=== PATIENT | female | born 1975 ===

== ENCOUNTER 2024-08-25 15:24 | Inpatient (IN) | payer BC, SELFPAY ==
[2024-08-22 22:09] VITALS: BP 152/95
[2024-08-22 23:12] VITALS: BMI 33.2
[2024-08-22 23:37] LABS: % Basophils 0.4 % (0-2); % Immature Granulocytes 0.3 % (0-0.5); % Lymphocytes 14.1 % (20.5-51.1); % Monocytes 0.9 % (1.7-9.3); % Neutrophils 84.3 % (42.2-75.2); Absolute Lymphocytes 1.5 10^3/uL (1.2-3.4); Absolute Monocytes 0.1 10^3/uL (0.1-0.6); Hematocrit 43.8 % (37.0-47.0); Hemoglobin 13.7 g/dL (12.0-16.0); Mean Corp Hgb Conc. 31.3 g/dL (33.0-37.0); Mean Corpuscular Hgb 28.4 pg (27.0-31.0); Mean Corpuscular Volume 90.7 fL (81.0-99.0); Mean Platelet Volume 10.1 fL (7.4-10.4); Nucleated Red Blood Cells % 0 %; Platelet Count 371 10^3/uL (130-400); Red Blood Cell Count 4.83 10^6/uL (4.20-5.40); Red Cell Dist. Width 13.4 % (11.5-14.5); White Blood Cell Count 10.7 10^3/uL (4.8-10.8)
[2024-08-22 23:39] LABS: Erythrocyte Sed Rate 19 mm/hour (0-20)
[2024-08-22 23:42] LABS: HCG, Serum Qualitative Screen Negative
[2024-08-22 23:48] LABS: Blood Urea Nitrogen 17 mg/dl (7-17); Calcium 9.5 mg/dl (8.4-10.2); Carbon Dioxide 25 mmol/L (22-30); Chloride 102 mmol/L (98-107); Estimated Creatinine Clearance 108 ml/min; Glucose 145 mg/dl (70-99); Potassium 4.3 mmol/L (3.5-5.1); Sodium 139 mmol/L (135-145); eGFR > 60.00
--- NOTE | 2024-08-22 23:55 | ED.GENMED ---
History of Present Illness
General
Chief Complaint: Headache
Source: patient
Exam Limitations: none
Time Seen by Provider: 08/22/24 22:41
History of Present Illness
History of Present Illness:
49-year-old female with a long history of headaches. These will occur typically 1 to 2 months occur for years. Is followed by neurology. Headaches are typically right-sided right restorationism over the right side of the neck. This evening however she
felt a pop on the side became more concerned and presents for evaluation. She does not want pain management.
Past History
Past History
ED Past Medical History: Other (Chronic migraines)
ED Past Surgical History: Other (Breast reduction)
Review of Systems
Review of Systems
All Other Systems: Not applicable
Constitutional: Denies fever or chills
Neurological: Denies dizzy, headache, weakness or numbness
Phy Exam
Physical Exam
Physical Exam:
GENERAL: Alert and oriented in no apparent distress
EYE: Orbits normal.
NECK: Supple, no carotid bruit
ENT: Pharynx without erythema
CARDIAC: Regular rate and rhythm without any obvious murmurs.
LUNGS: Clear breath sounds,normal
ABDOMEN: Soft, without focal tenderness or distention
NEUROLOGICAL: Alert and oriented , grossly non-focal. Speech normal. Cranial nerves II through XII intact. Extraocular muscles intact.
SKIN: Warm and dry, no rash or lesion, no discoloration, skin intact.
MUSCULOSKELETAL: No edema,no deformity.Good color
PSYCH: Normal and appropriate interaction.
Course
Orders/Labs/Results
Orders:
Orders
08/22/24 22:52
CT Head & Neck Angio W/wo IV Urgent
Comment:
Reason For Exam: Severe right-sided headache/right neck pain
IV Insert/Care/Rem.- Treatment PRN
08/22/24 22:53
Test Result ONCE
08/22/24 23:10
Basic Metabolic Panel Urgent
Complete Blood Count/With Diff Urgent
Erythrocyte Sed Rate Urgent
HCG, Serum Qualitative Screen Urgent
08/23/24 01:38
ECG [Electrocardiogram (*1)] Urgent
Reason for Study: Chest Pain
EKG- Treatment ONCE
08/23/24 01:45
Acetaminophen 1000MG/100Ml [Ofirmev] 1,000 mg in 100 ml IV ONCE
Acetaminophen IV Indication:: ED Narcotic Naive Pt-ONCE
08/23/24 02:18
Admit/Transfer Patient As Directed
Co-Sign Provider:
Level of Care: Observation services
Assign to:: Telemetry
Physician / Group: Uri
Diagnosis: Intractable Migraine, Abnormal CTA
Reason for Telemetry: Arrhythmia
Date to Stop Telemetry: 08/26/24
Time to Stop Telemetry: 11:00
Diphenhydramine [Benadryl] 25 mg IV NOW STA
Ketorolac [Toradol] 15 mg IV NOW STA
08/23/24 02:19
Code Status As Directed
Resuscitation Status: Full Code
PRN Pain Medication Management As Directed
May give lesser potent ordered pain med per pt: Yes
preference::
Protocol:: Medication orders for pain may be administered in a
manner that supports deferring to patient preference
when the pt is:
- Requesting an ordered lesser potent pain medication.
Least to most potent pain medications are defined
as: acetaminophen < NSAID < tramadol < opioids
(morphine, oxycodone, hydromorphone).
- Requesting a lesser dose of the same medication IF
ORDERED.
- Requesting a less intrusive route of administration
if both routes are prescribed by the provider (PO <
IV).
08/23/24 03:00
Flush (0.9% Sodium Chloride) [Flush (Nss)] See Dose Instructions IV PER PROTOCOL
08/23/24 03:36
Acetaminophen [Tylenol] 650 mg PO Q4HPRN PRN
HydrALAZINE [Apresoline] 10 mg IV Q6HPRN PRN
Ketorolac [Toradol] 15 mg IV Q6HPRN PRN
Metoclopramide [Reglan] 10 mg IV Q6HPRN PRN
08/23/24 03:36
Consult Notification Routine
Specialty to Notify: Neurology
Date consulting provider notified: 08/23/24
Time consulting provider notified: 06:57
Notified:: Provider
Comment: tt
NEUROLOGY CONSULT Routine
Consulting Provider: Judith Lomas
Was physician already notified: No
Reason for consult: Intractable Migraine, Abnormal CTA
Activity As Directed
Activity Level: Ambulate
I/O [Intake/ Output] As Directed
Frequency: Per unit guidelines
Neurological Checks As Directed
Frequency: q4h
Pneumatic Compression Sleeves As Directed
Type: Knee high
Vital Signs As Directed
Frequency: Per unit guidelines
Oxygen Therapy [O2 Therapy] [RESP] Routine
Titrate/Wean O2 to maintain O2 sat greater than (%): 94
DX Deep Vein Thrombosis Video Routine
08/23/24 Breakfast
Regular
At Your Request: Full Participation
Does patient need a safe tray?: No
MR Brain W/o & With Contrast IN AM
Comment:
Reason For Exam: Headache, Abnormal CTA
Recent pill cam endoscopy?: No
08/23/24 07:35
Basic Metabolic Panel IN AM
Complete Blood Count/No Diff IN AM
08/26/24 11:00
DC Protocol for Telemetry ONCE
Abnormal Lab Results
08/22/24
23:10
MCHC 31.3 L g/dL
(33.0-37.0)
Absolute Neuts (auto) 9.0 H 10^3/uL
(1.4-6.5)
Neutrophils % 84.3 H %
(42.2-75.2)
Lymphocytes % 14.1 L %
(20.5-51.1)
Monocytes % 0.9 L %
(1.7-9.3)
Glucose 145 H mg/dl
(70-99)
08/22/24 23:10
08/22/24 23:10
Vital Signs
Initial and Last Documented VS:
Initial Vital Signs
Temp Pulse Resp BP Pulse Ox
98.7 F 71 16 152/95 96
08/22/24 22:09 08/22/24 22:09 08/22/24 22:09 08/22/24 22:09 08/22/24 22:09
Last Documented Vital Signs
Temp Pulse Resp BP Pulse Ox
98.2 F 67 17 131/72 95
08/24/24 11:15 08/24/24 11:15 08/24/24 11:15 08/24/24 11:15 08/24/24 11:15
MDM/Problems Addressed
Differential Diagnosis Includes:
Clinically this is likely all part of her chronic migraine and chronic headache issue. However with the sudden pop and pain radiating down the neck. Dissection and intracerebral bleed need to be ruled out. Clinically stable and nontoxic.
*Pulse Oximetry
Patient hypoxic: no
*EKG
Interpreted by ED Provider?: Yes
Interpretation: normal
Comparison EKG: no changes
Heart Rate: 72
Rate: normal
Rhythm: sinus
[place]: normal axis
Interval: normal interval
QRS Pattern: normal QRS
Ischemia: no ischemia
*Critical Care Note
Total Time (30-74mins, 75-104mins- exclusive of procedures): Not Applicable
ED Attending Note
-
Portions of this chart may have been created with voice recognition software.� Occasional wrong word or��sound alike� substitutions may have occurred due to the inherent limitations of voice recognition software.
Discharge Plan
Departure
Patient Disposition: Admit
Date of Disposition: 08/23/24
Time of Disposition: 01:12
Presentation/result/management discussed w/ accepting MD/DO: Hospitalist
Discharge Problem:
Right sided headache/neck pain, Possible abnormality by CT angiography
Interventions
Interventions:
*Risk Screen - Suicide Last Done: 08/23/24 03:49
*General Assessment Last Done: 08/22/24 22:09
*Neglect/Abuse Screening Last Done: 08/22/24 22:09
*ED COVID-19 Vaccine History Last Done: 08/23/24 03:49
*Nursing Disposition Last Done: 08/23/24 03:41
ED- Neurological Assessment Last Done: 08/22/24 23:12
Discharge Date and Time
Discharge Date/Time: 08/23/24 03:41
[2024-08-23] VITALS (8 sets, daily range): BP systolic 98–133; BP diastolic 59–88; BMI 32.0
[2024-08-23] MEDS: OFIRMEV 100 IV (01:50)
--- NOTE | 2024-08-23 02:21 | HPS.HSE ---
Family Physician
-
Family Physician: Jeff Jones
Chief Complaint
-
Headache / Neck Pain
History of Present Illness
Patient is a 49y F with PMH significant for migraine headaches who presents to ED complaining of R sided headache and neck pain. Patient notes that she has had migraine headaches for about 20 years or so. Her current headache started in May
and has been fairly consistent since that time - with perhaps 1-2 days symptom free in that time. She notes pain in the R bahai, R eye and radiating into the R neck and chest. She complains of blurry vision involving both eyes. No double vision.
No speech difficulty, numbness, tingling or weakness.
Patient has been taking Tylenol at home and uses ice packs around the clock in an attempt to improve her symptoms.
She notes that pain is usually somewhat better after sleeping - but returns fairly quickly.
She states that she has been followed by Neurology and notes that she was started on oral steroids last week and the dose was increased a few days ago - with no significant improvement in her symptoms.
Medical History
Past Medical History
Past Medical History: Reports Other
Additional Past Medical History:
Migraine Headaches
Past Surgical History: Reports Other
Additional Past Surgical History:
Breast Reduction
T&A
Uterine Ablation
Social History
Tobacco: Non-smoker
Alcohol: Occasional
Drug: None
Family History
Family History: Other (Multiple family members with cerebral aneurysms.)
Allergies / Home Medications
Allergies reflects when Allergies were last updated in [facility].
Home Medications with original date entered in [facility]
Allergy/Medication List:
Allergies
Allergy/AdvReac Type Severity Reaction Status Date / Time
Tetanus Vaccines and Toxoid Allergy Unknown Verified 08/22/24 22:15
Home Medications
No Meds [No Current Medications] 08/23/24
Review of Systems
-
History Source: Patient
A 12 point ROS was completed and negative except as noted: Yes
Constitutional: Reports Fatigue; Denies Fever or Chills
EENT: Reports Other (Blurry vision); Denies Sore Throat
Respiratory: Denies Cough or Trouble Breathing
Cardiac: Denies Chest Pain or Palpitations
Abdomen/GI: Denies Abdominal Pain, Nausea, Vomiting or Diarrhea
: Denies Dysuria or Frequency
Musculoskeletal: Denies Joint Pain or Edema
Neurological: Reports Headache; Denies Dizzy, Weakness or Numbness
Psych: Denies Depression or Anxiety
Physical Exam
Vital Signs
Vital Signs
Temp Pulse Resp BP Pulse Ox
98.7 F 86 16 132/81 99
08/22/24 22:09 08/23/24 01:50 08/23/24 01:50 08/23/24 01:50 08/23/24 01:50
Physical Exam
General: Other (49y F in mild distress due to headache / pain.)
HEENT: Moist mucous membranes and PERRLA
Respiratory: Clear; No Wheezes, Rales or Rhonchi
Cardiac: S1/S2 and Regular Rhythm; No Murmur
GI: Soft, Non Tender, Non Distended and Normal Bowel Sounds
Musculoskeletal: No Clubbing, No Cyanosis and No Edema
Neuro: AO x 3 and Nonfocal/grossly intact
Laboratory Results
-
08/22/24 23:10
08/22/24 23:10
Impression/Plan
-
A/P: Patient is a 49y F with PMH significant for migraines who presents to ED complaining of right-sided headache x 2 months.
Intractable Migraine
Abnormal CTA Brain
- Observe overnight for further evaluation and treatment.
- Continue supportive care in attempt to improve migraine symptoms.
- Reglan / Toradol PRN.
- Neurology evaluation for additional recommendations.
- CTA Brain done this evening shows 1.5 x 1.3 cm abnormality in the R temporal region c/w venous frey / possible aneurysm (though less likely).
- Check MRI / MRA in the AM for further evaluation of CTA abnormality.
DVT Prophylaxis: SCDs
Code Status: Full
[2024-08-23] MEDS: FLUSH (NSS) 1 FLUSH IV (02:27)
[2024-08-23] MEDS: BENADRYL 25 MG IV ×2 (02:27→21:57)
[2024-08-23] MEDS: TORADOL 15 MG IV ×3 (02:27→21:19)
--- NOTE | 2024-08-23 04:53 | PTCARENOTE ---
Pt admitted to floor at approximately 0340 on tele. VSS. Pt AAOx3 and c/o Right sided head, neck, and chest pain. PRN Toradol administered. Pt NSR on the monitor. Pt oriented to room and call mckinney.
[2024-08-23] MEDS: TYLENOL 650 MG PO (05:52)
[2024-08-23] MEDS: REGLAN 10 MG IV (05:53)
[2024-08-23 08:28] LABS: Hematocrit 40.3 % (37.0-47.0); Hemoglobin 12.7 g/dL (12.0-16.0); Mean Corp Hgb Conc. 31.5 g/dL (33.0-37.0); Mean Corpuscular Hgb 28.6 pg (27.0-31.0); Mean Corpuscular Volume 90.8 fL (81.0-99.0); Mean Platelet Volume 10.5 fL (7.4-10.4); Platelet Count 344 10^3/uL (130-400); Red Blood Cell Count 4.44 10^6/uL (4.20-5.40); Red Cell Dist. Width 13.4 % (11.5-14.5); White Blood Cell Count 12.1 10^3/uL (4.8-10.8)
--- NOTE | 2024-08-23 08:28 | CON.NEURO ---
Addendum entered and electronically signed by Judith Lomas MD 08/23/24 13:11:
CTA neck-no dissection.
Original Note:
Consultation
Order
Date of Consultation: 08/23/24
Requesting Provider: Felice Grewal DO
Reason for Consult: Headache, abnormal CTA
CC: headache
HPI: This is a 49-year-old woman who presented to [facility] on 08-30-2024 with headache.
endorses moderate to severe nonpositional throbbing and mid cephalic headache radiating to her neck and chest over the last several days. She states that she heard a 'pop 'prompting her to seek medical attention. No reports of head trauma,
fever, change in vision, sensory or motor deficits, autonomic symptoms, excessive caffeine use, recently discontinue medications.
Ms. Thomas has a long history of similar headaches that has been more prolonged over the last several years. Common triggers include stress.
Prior ineffective rescue therapies included OTC NSAIDs, O2, Imitrex, Zyprexa, Nurtec, steroids, opioids. The patient recalls being on verapamil. She reportedly has had multiple hospitalizations for status migrainous to various hospitals in the
past.
The patient reportedly had NCS/EMG yesterday.
ER VS: 152/95, 71, afebrile.
EKG: NSR, QTc Int : 416 ms
CTA head-1.5 x 1.3 cm focus of enhancement in the medial right temporal lobe(venous frey/varix vs vs mass vs aneurysm vs hemorrhage).
PDMP: none
Labs: WBCs�10.7�12.1, normal sodium, calcium, creatinine, WBCs, glucose�145.
PMH: migraine wo aura, BMI 32, h/o toxic shock syndrome
PSH: Reduction mammoplasty, tonsillectomy
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
FH: Multiple family members had cerebral aneurysm
All:Tetanus toxoid
ROS:Constitutional: Negative. Negative for chills, fever and unexpected weight change.
HENT: Negative for ear pain, hearing loss, tinnitus and trouble swallowing.
Eyes: Negative. Negative for photophobia, pain and visual disturbance.
Respiratory: Negative for cough, choking and shortness of breath.
Cardiovascular: Negative for chest pain, palpitations and leg swelling.
Gastrointestinal: Negative for abdominal pain and vomiting.
Endocrine: Negative. Negative for cold intolerance.
Genitourinary: Negative for dysuria, flank pain and urgency.
Musculoskeletal: Negative for back pain, gait problem, neck pain and neck stiffness.
Skin: Negative for rash.
Allergic/Immunologic: Negative. Negative for immunocompromised state.
Neurological: positive for headache
Psychiatric/Behavioral: Negative for behavioral problems, confusion and hallucinations.
General: Well developed. In no acute distress.
Cardio: Regular rate and rhythm without murmur. Extremities are without cyanosis or edema.
Neuro:
Mental Status: Alert, oriented to person, place, and date. Normal attention and recall. Good fund of knowledge. Follows complex requests across the midline. Comprehension, naming, and repetition intact. Immediate and delayed recall 3/3.
Cranial Nerves: . Pupils are equally round and reactive to light. EOMs full. Visual castellanos full to confrontation. No ptosis. No nystagmus. V1-V3 intact to light touch and pinprick bilaterally, symmetric. Face symmetric. Normal hearing AU.
The palate elevated well. SCMs and traps 5/5. Tongue midline. No dysarthria.
Motor: Normal bulk and tone. No pronator or arm drift. Strength 5/5 throughout. No clonus.
Reflexes: 2+ throughout the upper extremities and knees. Plantar responses flexor bilaterally. Negative Brittni's bilaterally
Sensory: Normal vibration and JPS.
Coordination: No dysmetria or tremor.
Gait: deferred
Assessment and Plan:
I. Status migrainous
II. Neck pain
III. 1.5 x 1.3 cm focus of enhancement in the medial right temporal lobe(venous frey/varix vs vs mass vs aneurysm vs hemorrhage).
-BP goal-normotension
-CTA neck to rule out ICA dissection
-Brain MRI w/wo karel
-IV Reglan 10 mg, Benadryl 25 mg Q8h PRN for moderate to severe headache.
-Please check magnesium, ESR, CRP, D-dimer, ua tox
-Please obtain medical records from [facility]
I personally reviewed all radiology and labs along with past medical records pertinent to current medical problems. Total time spent in patient care is 60 minutes.
Thank you for allowing us to participate in the care of this patient. We will continue to follow. Please do not hesitate to contact us with any questions or concerns.
Subjective/Objective
Subjective Data
Date of Service: August 23, 2024
Objective Data
Vital Signs
Temp Pulse Resp BP Pulse Ox
36.6 C 70 20 98/59 98
08/23/24 07:31 08/23/24 07:31 08/23/24 07:31 08/23/24 07:31 08/23/24 07:31
Sodium 139 mmol/L (135-145) 08/22/24 23:10
Potassium 4.3 mmol/L (3.5-5.1) 08/22/24 23:10
BUN 17 mg/dl (7-17) 08/22/24 23:10
Glucose 145 mg/dl (70-99) H 08/22/24 23:10
Calcium 9.5 mg/dl (8.4-10.2) 08/22/24 23:10
Patient Allergies
Tetanus Vaccines and Toxoid Allergy (Verified 08/22/24 22:15)
Unknown
Medications
-
Active Medications
Generic Name Dose Route Start Last Admin
Trade Name Freq PRN Reason Stop Dose Admin
Acetaminophen 650 mg 08/23/24 03:36 08/23/24 05:52
Acetaminophen 325 Mg Tablet PO 09/20/24 03:35 650 mg
Q4HPRN PRN Administration
Mild Pain / Temp > 101
Hydralazine HCl 10 mg 08/23/24 03:36
Hydralazine 20 Mg/Ml Vial IV 09/20/24 03:35
Q6HPRN PRN
SBP > 180
Ketorolac Tromethamine 15 mg 08/23/24 03:36 08/23/24 04:12
Ketorolac 15 Mg/Ml Injection IV 08/28/24 03:35 15 mg
Q6HPRN PRN Administration
Moderate Pain
Metoclopramide HCl 10 mg 08/23/24 03:36 08/23/24 05:53
Metoclopramide 10 Mg/2 Ml Vial IV 09/20/24 03:35 10 mg
Q6HPRN PRN Administration
Headache / Nausea
Sodium Chloride 0 flush 08/23/24 03:00 08/23/24 02:27
Sodium Chloride 0.9% (Flush) Syringe IV 09/20/24 02:59 1 flush
PER PROTOCOL ED Administration
Home Medications
�Medication �Instructions �Recorded
No Meds [No Current Medications] 08/23/24
[2024-08-23 09:52] LABS: Blood Urea Nitrogen 15 mg/dl (7-17); Calcium 9.3 mg/dl (8.4-10.2); Carbon Dioxide 25 mmol/L (22-30); Chloride 104 mmol/L (98-107); Estimated Creatinine Clearance > 125 ml/min; Glucose 95 mg/dl (70-99); Magnesium 1.9 mg/dl (1.6-2.3); Potassium 4.4 mmol/L (3.5-5.1); Sodium 141 mmol/L (135-145); eGFR > 60.00
[2024-08-23] MEDS: TYLENOL PO ×2 (10:28→18:42)
--- NOTE | 2024-08-23 13:53 | W.PN.UPDATE ---
Update Note
Progress Note Update
Nonbillable note
CTA images reviewed
Patient stated of having tried morphine/NSAID/Tylenol at home without much help. After discussion patient agreeable to be maintained on Tylenol/Toradol as needed Dilaudid for breakthrough pain
MRI brain and MRA head report is pending at this point
[2024-08-23] MEDS: MAGNESIUM SULFATE 102 GRAMS IV (14:49)
[2024-08-23 15:04] LABS: D-Dimer 0.32 ug/mlFEU (0.00-0.50)
[2024-08-23 15:13] LABS: Amphetamines Negative (Negative); Barbiturates Negative (Negative); Benzodiazepines Negative (Negative); Buprenorphine Negative (Negative); Cocaine Negative (Negative)
[2024-08-23 15:14] LABS: Marijuana Negative (Negative); Methadone Negative (Negative); Methamphetamines Negative (Negative); Opiates Negative (Negative); Phencyclidine Negative (Negative); Tricyclic Antidepressants Negative (Negative)
[2024-08-23 15:19] LABS: Troponin I < 0.012 ng/ml
[2024-08-23 15:40] LABS: Fentanyl, Urine Negative (Negative)
[2024-08-23] MEDS: DEPACON 55 MG IV (16:16)
--- NOTE | 2024-08-23 16:34 | CM ---
supplier quality engineering manager reviewed patient's chart and met with patient and patient's sister lives with her along with her niece, 2 kids and grandsons in a one story home, patient is independent with adl's and ambulation, no dme, patient drives, home no needs.
PCP: Dr. Jones
Pharmacy: [facility]
Plan; Home with family when stable.
[2024-08-23] MEDS: DILAUDID 0.5 MG IV (22:33)
[2024-08-24] MEDS: TORADOL 30 MG IV ×2 (00:04→10:55)
[2024-08-24] MEDS: MELATONIN 3 MG PO (00:04)
[2024-08-24] MEDS: TYLENOL 1000 MG PO ×3 (00:06→18:08)
[2024-08-24] MEDS: REGLAN 10 MG IV (00:12)
[2024-08-24] MEDS: DILAUDID 0.5 MG IV ×2 (03:26→12:43)
[2024-08-24 03:32] VITALS: BP 110/67
[2024-08-24 07:02] VITALS: BP 96/69
[2024-08-24 08:16] LABS: D-Dimer 0.29 ug/mlFEU (0.00-0.50)
[2024-08-24] MEDS: DECADRON 6 MG IV (09:06)
[2024-08-24] MEDS: TORADOL 15 MG IV (09:07)
[2024-08-24 10:45] LABS: CRP, Highly Sensitive 1.81 mg/L
[2024-08-24 11:15] VITALS: BP 131/72
--- NOTE | 2024-08-24 12:20 | W.PN.NEURO.1 ---
Today's Communication / Plan
-
.
Subjective/Objective
Subjective Data
Date of Service: August 24, 2024
Neurology follow-up note.
Ms. Thomas endorses moderate to severe right sided headache. No reports of photophobia, phonophobia, nausea or change in vision. She states that valproic acid was not beneficial. She recalls zavzpret was helpful in the recent past.
Brain MRI w/wo karel(08/23/2024)- 1.3 x 1.4 x 1.1 cm homogeneously enhancing, dural-based lesion along the right anterior temporal fossa with associated mild mass effect on the adjacent temporal lobe.
CRP 1.8, ESR-19.
ua tox: oxy
PMH: migraine wo aura, BMI 32, h/o toxic shock syndrome
PSH: Reduction mammoplasty, tonsillectomy
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
FH: Multiple family members had cerebral aneurysm
All:Tetanus toxoid
ROS:Constitutional: Negative. Negative for chills, fever and unexpected weight change.
HENT: Negative for ear pain, hearing loss, tinnitus and trouble swallowing.
Eyes: Negative. Negative for photophobia, pain and visual disturbance.
Respiratory: Negative for cough, choking and shortness of breath.
Cardiovascular: Negative for chest pain, palpitations and leg swelling.
Gastrointestinal: Negative for abdominal pain and vomiting.
Endocrine: Negative. Negative for cold intolerance.
Genitourinary: Negative for dysuria, flank pain and urgency.
Musculoskeletal: Negative for back pain, gait problem, neck pain and neck stiffness.
Skin: Negative for rash.
Allergic/Immunologic: Negative. Negative for immunocompromised state.
Neurological: positive for headache
Psychiatric/Behavioral: Negative for behavioral problems, confusion and hallucinations.
General: Well developed. In no acute distress.
Cardio: Regular rate and rhythm without murmur. Extremities are without cyanosis or edema.
Neuro:
Mental Status: Alert, oriented to person, place, and date. Normal attention and recall. Good fund of knowledge. Follows complex requests across the midline. Comprehension, naming, and repetition intact. Immediate and delayed recall 3/3.
Cranial Nerves: . Pupils are equally round and reactive to light. EOMs full. Visual castellanos full to confrontation. No ptosis. No nystagmus. V1-V3 intact to light touch and pinprick bilaterally, symmetric. Face symmetric. Normal hearing AU.
The palate elevated well. SCMs and traps 5/5. Tongue midline. No dysarthria.
Motor: Normal bulk and tone. No pronator or arm drift. Strength 5/5 throughout. No clonus.
Reflexes: 2+ throughout the upper extremities and knees. Plantar responses flexor bilaterally. Negative Brittni's bilaterally
Sensory: Normal vibration and JPS.
Coordination: No dysmetria or tremor.
Gait: deferred
Assessment and Plan:
I. Status migrainous
II. Neck pain
III. R anterior temporal fossa 1.3 x 1.4 x 1.1 cm dural-based lesion with mild mass effect
IV. Abnormal urine levels of substances chiefly nonmedicinal as to source.
-BP goal-normotension
-IV Reglan 10 mg, Benadryl 25 mg Q8h PRN for moderate to severe headache.
-Continue dexamethasone 4 mg every 6 hour IV with PPI prophylaxis
-Avoid opioids.
-Monitor QTc interval
-Please obtain medical records from [facility]
I personally reviewed all radiology and labs along with past medical records pertinent to current medical problems. Total time spent in patient care is 46 minutes.
Thank you for allowing us to participate in the care of this patient. We will continue to follow. Please do not hesitate to contact us with any questions or concerns.
Objective Data
Vital Signs
Temp Pulse Resp BP Pulse Ox
36.8 C 67 17 131/72 95
08/24/24 11:15 08/24/24 11:15 08/24/24 11:15 08/24/24 11:15 08/24/24 11:15
Lab Results
08/23/24 07:35
08/23/24 07:35
Sodium 141 mmol/L (135-145) 08/23/24 07:35
Potassium 4.4 mmol/L (3.5-5.1) 08/23/24 07:35
BUN 15 mg/dl (7-17) 08/23/24 07:35
Glucose 95 mg/dl (70-99) 08/23/24 07:35
Calcium 9.3 mg/dl (8.4-10.2) 08/23/24 07:35
Ur Buprenorphine Negative (Negative) 08/23/24 13:28
Patient Allergies
Tetanus Vaccines and Toxoid Allergy (Verified 08/22/24 22:15)
Unknown
Vital Signs and Labs
-
Vital Signs and Labs:
Vital Signs
Temp Pulse Resp BP Pulse Ox
36.8 C 67 17 131/72 95
08/24/24 11:15 08/24/24 11:15 08/24/24 11:15 08/24/24 11:15 08/24/24 11:15
Lab Results
08/23/24 07:35
08/23/24 07:35
Sodium 141 mmol/L (135-145) 08/23/24 07:35
Potassium 4.4 mmol/L (3.5-5.1) 08/23/24 07:35
BUN 15 mg/dl (7-17) 08/23/24 07:35
Glucose 95 mg/dl (70-99) 08/23/24 07:35
Calcium 9.3 mg/dl (8.4-10.2) 08/23/24 07:35
Ur Buprenorphine Negative (Negative) 08/23/24 13:28
Medications
-
Medications:
Generic Name Dose Route Start Last Admin
Trade Name Freq PRN Reason Stop Dose Admin
Acetaminophen 1,000 mg 08/23/24 11:00 08/24/24 10:23
Acetaminophen 500 Mg Tablet PO 09/20/24 10:59 1,000 mg
Q8H ED Administration
Dexamethasone Sodium Phosphate 4 mg 08/24/24 14:00
Dexamethasone 4 Mg/Ml 1 Ml Vial IV 09/21/24 13:59
Q6H ED
Diphenhydramine HCl 25 mg 08/23/24 12:08 08/23/24 21:57
Diphenhydramine 50 Mg/Ml 1 Ml Vial IV 09/20/24 12:07 25 mg
HSPRN PRN Administration
hedache
Hydralazine HCl 10 mg 08/23/24 03:36
Hydralazine 20 Mg/Ml Vial IV 09/20/24 03:35
Q6HPRN PRN
SBP > 180
Hydromorphone HCl 0.5 mg 08/23/24 10:06 08/24/24 03:26
Hydromorphone 0.5 Mg/0.5 Ml Syringe IV 09/06/24 10:05 0.5 mg
Q3HPRN PRN Administration
breakthrough pain
Ketorolac Tromethamine 15 mg 08/23/24 03:36 08/24/24 09:07
Ketorolac 15 Mg/Ml Injection IV 08/28/24 03:35 15 mg
Q6HPRN PRN Administration
Moderate Pain
Ketorolac Tromethamine 30 mg 08/23/24 10:06 08/24/24 10:55
Ketorolac 30 Mg/Ml Injection IV 08/28/24 10:05 30 mg
Q6HPRN PRN Administration
sev pain
Metoclopramide HCl 10 mg 08/23/24 12:08 08/24/24 00:12
Metoclopramide 10 Mg/2 Ml Vial IV 09/20/24 12:07 10 mg
Q8HPRN PRN Administration
headache
Sodium Chloride 0 flush 08/23/24 03:00 08/23/24 02:27
Sodium Chloride 0.9% (Flush) Syringe IV 09/20/24 02:59 1 flush
PER PROTOCOL ED Administration
Home Medications
-
Home Medications
No Meds [No Current Medications] 08/23/24
[2024-08-24 12:22] LABS: Lyme Antibody Screen, EIA Negative (Negative)
[2024-08-24] MEDS: PROTONIX 40 MG PO (12:47)
--- NOTE | 2024-08-24 13:56 | CON.NS ---
Chief Complaint
-
Headache
History of Present Illness
This is a 49-year-old female admitted with severe headache. She has a long history of headaches. She has been treated by multiple physicians over multiple hospital admissions at different institutions. She states that she does see a headache
specialist in [place]. She came in with severe headache following a feeling of a pop in her head. An MRI of the brain was completed which showed a right temporal meningioma. Neurosurgery was consulted subsequently. Denies any weakness in her
upper or lower extremities. States that her headache pattern is in its normal places.
Review of Systems
-
10 point review of systems was completed and negative except stated in HPI
Medication and Allergies
Home Medications
Home Medications
�Medication �Instructions �Recorded
No Meds [No Current Medications] 08/23/24
Allergies
Allergies
Allergy/AdvReac Type Severity Reaction Status Date / Time
Tetanus Vaccines and Toxoid Allergy Unknown Verified 08/22/24 22:15
Physical Exam
-
Exam:
Awake alert and oriented x 3
Cranials 2 through 12 grossly intact
Motor strength reveals 5 out of 5 upper lower extremity strength
Sensory is grossly intact
Speech is clear and fluent
Respirations are even unlabored
MRI of the brain reveals a 1.3 x 1.3 x 1 cm right anterior medial temporal lobe extra-axial mass most consistent with meningioma. I do not appreciate any surrounding cerebral edema.
Assessment / Plan
-
Meningioma:
1. No acute neurosurgical interventions are needed
2. Patient okay for discharge from neurosurgical standpoint, she should follow-up as an outpatient in the office.
3. Defer headache management to neurology.
--- NOTE | 2024-08-24 14:07 | CM ---
Home when stable, no needs.
Plan; Home when stable.
--- NOTE | 2024-08-24 14:53 | W.PN.HOSP.TC ---
Today's Communication/Plan
-
symptom control for migraine
Assessment / Plan
Assessment / Plan
CTA h&n
No convincing acute intracranial process.
In the medial right temporal lobe there is a 1.5 x 1.3 cm focus of enhancement which may represent a venous frey/varix, less likely mass, aneurysm or hemorrhage. Otherwise no significant vascular occlusion, aneurysm or dissection. Recommend further
evaluation with contrast-enhanced MRI.
MRI brain
No acute intracranial abnormality noted.
There is a 1.3 x 1.4 x 1.1 cm homogeneously enhancing, dural-based lesion along the right anterior temporal fossa with associated mild mass effect on the adjacent temporal lobe which is favored to represent a meningioma.

Intractable Migraine
h/o status migrainosus
- Increased dose of toradol/scheduled tylenol ordered
- PRN reglan ordered by neurology
Right ant temporal fossa meningioma
- CTA Brain done this evening shows 1.5 x 1.3 cm abnormality in the R temporal region c/w venous frey / possible aneurysm (though less likely).
- MRI brain showing right ant temporal fossa meningioma
- Neurosx involved in care and clinically less likely to causing patient symptoms. No indication for sx
DVT Prophylaxis: SCDs
Code Status: Full
Anticipated Discharge: Within 24 hours
Subjective/Interval History
-
Date of Service: August 24, 2024
continues to have headache
no nausea/vomiting
Objective Data
-
Vital Signs:
Vital Signs
Temp Pulse Resp BP Pulse Ox
98.2 F 67 17 131/72 95
08/24/24 11:15 08/24/24 11:15 08/24/24 11:15 08/24/24 11:15 08/24/24 11:15
I&O
08/23/24 08/24/24 08/25/24
06:59 06:59 06:59
Intake Total 1574
Balance 1574
Review of Systems
-
Respiratory: Reports No Symptoms
Cardiac: Reports No Symptoms
Abdomen/GI: Reports No Symptoms
Physical Exam
-
General: No Apparent Distress and Comfortable
HEENT: Negative Oxygen
Respiratory: Clear to Auscultation
Cardiac: Regular Rhythm and S1/S2; Negative Murmur or Rub
GI: Soft, Nontender, Nondistended and Normal Bowel Sounds
Musculoskeletal: No Edema
Neuro: Awake, Alert, Oriented, No Motor Deficits and Nonfocal/Grossly Intact
Psych: Calm
[2024-08-24] MEDS: DECADRON 4 MG IV ×2 (15:12→20:44)
[2024-08-24 15:29] VITALS: BP 122/76
[2024-08-24 19:56] VITALS: BP 116/81
[2024-08-24] MEDS: TOPAMAX 25 MG PO (20:45)
[2024-08-24] MEDS: FLUSH (NSS) 1 FLUSH IV (20:48)
[2024-08-24 23:33] VITALS: BP 102/59
[2024-08-25] MEDS: DECADRON 4 MG IV ×4 (02:20→21:11)
[2024-08-25] MEDS: TYLENOL 1000 MG PO ×3 (02:21→18:26)
[2024-08-25 03:11] VITALS: BP 101/56
--- NOTE | 2024-08-25 03:15 | PTCARENOTE ---
Assumed care of pt. Pt 0300 VSS- pt sleeping. Sinus rhythm on tele, plan of care ongoing.
[2024-08-25 08:07] VITALS: BP 120/68
[2024-08-25] MEDS: DILAUDID 0.5 MG IV (08:49)
[2024-08-25] MEDS: PROTONIX 40 MG PO (08:49)
[2024-08-25] MEDS: TOPAMAX 25 MG PO ×2 (08:49→21:10)
[2024-08-25 11:54] VITALS: BP 122/71
--- NOTE | 2024-08-25 13:31 | W.PN.NEURO.1 ---
Today's Communication / Plan
-
.
Subjective/Objective
Subjective Data
Date of Service: August 25, 2024
Neurology follow-up note.
Ms. Thomas
She started on Topamax and received 2 doses of dexamethasone. Required hydromorphone 0.5 mg once today. Tolerates Topamax well
Last documented pain level�02/09.
PMH: migraine wo aura, BMI 32, h/o toxic shock syndrome
PSH: Reduction mammoplasty, tonsillectomy
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
FH: Multiple family members had cerebral aneurysm
All:Tetanus toxoid
ROS:Constitutional: Negative. Negative for chills, fever and unexpected weight change.
HENT: Negative for ear pain, hearing loss, tinnitus and trouble swallowing.
Eyes: Negative. Negative for photophobia, pain and visual disturbance.
Respiratory: Negative for cough, choking and shortness of breath.
Cardiovascular: Negative for chest pain, palpitations and leg swelling.
Gastrointestinal: Negative for abdominal pain and vomiting.
Endocrine: Negative. Negative for cold intolerance.
Genitourinary: Negative for dysuria, flank pain and urgency.
Musculoskeletal: Negative for back pain, gait problem, neck pain and neck stiffness.
Skin: Negative for rash.
Allergic/Immunologic: Negative. Negative for immunocompromised state.
Neurological: positive for headache
Psychiatric/Behavioral: Negative for behavioral problems, confusion and hallucinations.
General: Well developed. In no acute distress.
Cardio: Regular rate and rhythm without murmur. Extremities are without cyanosis or edema.
Neuro:
Mental Status: Alert, oriented to person, place, and date. Normal attention and recall. Good fund of knowledge. Follows complex requests across the midline. Comprehension, naming, and repetition intact. Immediate and delayed recall 3/3.
Cranial Nerves: . Pupils are equally round and reactive to light. EOMs full. Visual castellanos full to confrontation. No ptosis. No nystagmus. V1-V3 intact to light touch and pinprick bilaterally, symmetric. Face symmetric. Normal hearing AU.
The palate elevated well. SCMs and traps 5/5. Tongue midline. No dysarthria.
Motor: Normal bulk and tone. No pronator or arm drift. Strength 5/5 throughout. No clonus.
Coordination: No dysmetria or tremor.
Gait: deferred
Assessment and Plan:
I. Status migrainous
II. R anterior temporal fossa 1.3 x 1.4 x 1.1 cm dural-based lesion with mild mass effect
III. Abnormal urine levels of substances chiefly nonmedicinal as to source.
-BP goal-normotension
-IV Reglan 10 mg, Benadryl 25 mg Q8h PRN for moderate to severe headache.
-Continue dexamethasone 4 mg every 6 hour IV with PPI prophylaxis
-D/c hydromorphone.
-Imitrex 6 mg subQ prn, diclofenac PRN
-Will consider switching dexamethasone to indomethacin based on clinical course
-Please increase Topamax to 50 mg twice daily with monitoring of bicarb level
-Please obtain medical records from [facility]
I personally reviewed all radiology and labs along with past medical records pertinent to current medical problems. Total time spent in patient care is 38 minutes.
Thank you for allowing us to participate in the care of this patient. We will continue to follow. Please do not hesitate to contact us with any questions or concerns
Objective Data
Vital Signs
Temp Pulse Resp BP Pulse Ox
36.7 C 65 18 122/71 96
08/25/24 11:54 08/25/24 11:54 08/25/24 11:54 08/25/24 11:54 08/25/24 11:54
Lab Results
08/23/24 07:35
08/23/24 07:35
Sodium 141 mmol/L (135-145) 08/23/24 07:35
Potassium 4.4 mmol/L (3.5-5.1) 08/23/24 07:35
BUN 15 mg/dl (7-17) 08/23/24 07:35
Glucose 95 mg/dl (70-99) 08/23/24 07:35
Calcium 9.3 mg/dl (8.4-10.2) 08/23/24 07:35
Ur Buprenorphine Negative (Negative) 08/23/24 13:28
Patient Allergies
Tetanus Vaccines and Toxoid Allergy (Verified 08/22/24 22:15)
Unknown
Vital Signs and Labs
-
Vital Signs and Labs:
Vital Signs
Temp Pulse Resp BP Pulse Ox
36.7 C 65 18 122/71 96
08/25/24 11:54 08/25/24 11:54 08/25/24 11:54 08/25/24 11:54 08/25/24 11:54
Lab Results
08/23/24 07:35
08/23/24 07:35
Sodium 141 mmol/L (135-145) 08/23/24 07:35
Potassium 4.4 mmol/L (3.5-5.1) 08/23/24 07:35
BUN 15 mg/dl (7-17) 08/23/24 07:35
Glucose 95 mg/dl (70-99) 08/23/24 07:35
Calcium 9.3 mg/dl (8.4-10.2) 08/23/24 07:35
Ur Buprenorphine Negative (Negative) 08/23/24 13:28
Medications
-
Medications:
Generic Name Dose Route Start Last Admin
Trade Name Freq PRN Reason Stop Dose Admin
Acetaminophen 1,000 mg 08/23/24 11:00 08/25/24 12:26
Acetaminophen 500 Mg Tablet PO 09/20/24 10:59 1,000 mg
Q8H ED Administration
Dexamethasone Sodium Phosphate 4 mg 08/24/24 14:00 08/25/24 08:48
Dexamethasone 4 Mg/Ml 1 Ml Vial IV 09/21/24 13:59 4 mg
Q6H ED Administration
Diphenhydramine HCl 25 mg 08/23/24 12:08 08/23/24 21:57
Diphenhydramine 50 Mg/Ml 1 Ml Vial IV 09/20/24 12:07 25 mg
HSPRN PRN Administration
hedache
Hydralazine HCl 10 mg 08/23/24 03:36
Hydralazine 20 Mg/Ml Vial IV 09/20/24 03:35
Q6HPRN PRN
SBP > 180
Hydromorphone HCl 0.5 mg 08/23/24 10:06 08/25/24 08:49
Hydromorphone 0.5 Mg/0.5 Ml Syringe IV 09/06/24 10:05 0.5 mg
Q3HPRN PRN Administration
breakthrough pain
Ketorolac Tromethamine 15 mg 08/23/24 03:36 08/24/24 09:07
Ketorolac 15 Mg/Ml Injection IV 08/28/24 03:35 15 mg
Q6HPRN PRN Administration
Moderate Pain
Ketorolac Tromethamine 30 mg 08/23/24 10:06 08/24/24 10:55
Ketorolac 30 Mg/Ml Injection IV 08/28/24 10:05 30 mg
Q6HPRN PRN Administration
sev pain
Metoclopramide HCl 10 mg 08/23/24 12:08 08/24/24 00:12
Metoclopramide 10 Mg/2 Ml Vial IV 09/20/24 12:07 10 mg
Q8HPRN PRN Administration
headache
Pantoprazole Sodium 40 mg 08/24/24 13:00 08/25/24 08:49
Pantoprazole 40 Mg Delayed Release Tablet PO 09/21/24 12:59 40 mg
DAILY ED Administration
Sodium Chloride 0 flush 08/23/24 03:00 08/24/24 20:48
Sodium Chloride 0.9% (Flush) Syringe IV 09/20/24 02:59 1 flush
PER PROTOCOL ED Administration
Topiramate 25 mg 08/24/24 20:00 08/25/24 08:49
Topiramate 25 Mg Tablet PO 09/21/24 19:59 25 mg
BID ED Administration
Home Medications
-
Home Medications
No Meds [No Current Medications] 08/23/24
[2024-08-25 14:46] LABS: ALT (SGPT) 20 U/L (0-35); AST (SGOT) 16 U/L (14-36); Albumin 4.7 g/dl (3.5-5.0); Alkaline Phosphatase 73 U/L (38-126); Blood Urea Nitrogen 16 mg/dl (7-17); Carbon Dioxide 24 mmol/L (22-30); Chloride 102 mmol/L (98-107); Estimated Creatinine Clearance 110 ml/min; Glucose 152 mg/dl (70-99); Potassium 4.8 mmol/L (3.5-5.1); Sodium 141 mmol/L (135-145); Total Bilirubin 0.4 mg/dl (0.2-1.3); Total Protein 7.7 g/dl (6.3-8.2); eGFR > 60.00
[2024-08-25 15:00] VITALS: BP 107/74
--- NOTE | 2024-08-25 15:16 | W.PN.HOSP.TC ---
Today's Communication/Plan
-
as per Dr. Varner, pt qualifies to transition to full admit
Will request cardio input as to NSVT
continue current migraine Tx as per neuro
Assessment / Plan
Assessment / Plan
CTA h&n
No convincing acute intracranial process.
In the medial right temporal lobe there is a 1.5 x 1.3 cm focus of enhancement which may represent a venous frey/varix, less likely mass, aneurysm or hemorrhage. Otherwise no significant vascular occlusion, aneurysm or dissection. Recommend further
evaluation with contrast-enhanced MRI.
MRI brain
No acute intracranial abnormality noted.
There is a 1.3 x 1.4 x 1.1 cm homogeneously enhancing, dural-based lesion along the right anterior temporal fossa with associated mild mass effect on the adjacent temporal lobe which is favored to represent a meningioma.

Intractable Migraine still with symptoms
h/o status migrainosus
- Increased dose of toradol/scheduled tylenol ordered
- PRN reglan ordered by neurology, wants to continue Decadron, but stop Dilaudid
Right ant temporal fossa meningioma
- CTA Brain done this evening shows 1.5 x 1.3 cm abnormality in the R temporal region c/w venous frey / possible aneurysm (though less likely).
- MRI brain showing right ant temporal fossa meningioma
- Neurosx involved in care and clinically less likely to causing patient symptoms. No indication for sx
Pt on monitor and nursing noted what appears to be 2 short episodes of NSVT that occurred in close proximity. Reviewed tracing with GIFTY Fuentes. Pt felt palpitations during episodes
complex situation
DVT Prophylaxis: SCDs
Code Status: Full
Anticipated Discharge: 24 - 48 hours
Subjective/Interval History
-
Date of Service: August 25, 2024
Still with active migraine symptoms
Objective Data
-
Labs:
Laboratory Results
08/25/24
14:12
Sodium 141
Potassium 4.8
Chloride 102
Carbon Dioxide 24
BUN 16
Creatinine 0.8
Glucose 152 H
Calcium 10.0
Total Bilirubin 0.4
AST 16
ALT 20
Alkaline Phosphatase 73
Vital Signs:
Vital Signs
Temp Pulse Resp BP Pulse Ox
98.0 F 65 18 122/71 96
08/25/24 11:54 08/25/24 11:54 08/25/24 11:54 08/25/24 11:54 08/25/24 11:54
I&O
08/24/24 08/25/24 08/26/24
06:59 06:59 06:59
Intake Total 1575 / 1575 1440 / 1440
Balance 1575 / 1575 1440 / 1440
Review of Systems
-
History Source: Patient and Coordinated Provider
Constitutional: Denies Fever
EENT: Reports No Symptoms Reported
Cardiac: Reports Palpitations
Abdomen/GI: Reports No Symptoms
Neuro: Reports Headache
Physical Exam
-
General: Well Developed, Well Nourished and No Apparent Distress
HEENT: Normocephalic, Atraumatic and Moist Mucous Membranes
Respiratory: Clear to Auscultation; Negative Wheezes, Rales or Rhonchi
Cardiac: Regular Rhythm and S1/S2
GI: Soft, Nontender and Nondistended
Musculoskeletal: No Clubbing, No Cyanosis and No Edema
Neuro: Awake, Alert and Oriented
[2024-08-25] MEDS: VOLTAREN 75 MG PO (18:31)
[2024-08-25 19:15] VITALS: BP 128/76
[2024-08-25] MEDS: BENADRYL 25 MG IV (21:11)
[2024-08-25 23:08] VITALS: BP 113/51
[2024-08-26] MEDS: DECADRON 4 MG IV ×4 (02:27→21:49)
[2024-08-26] MEDS: TYLENOL 1000 MG PO ×3 (02:27→18:05)
[2024-08-26 03:50] VITALS: BP 131/80
[2024-08-26 06:24] LABS: % Basophils 0.1 % (0-2); % Immature Granulocytes 0.6 % (0-0.5); % Lymphocytes 8.3 % (20.5-51.1); Absolute Immature Granulocytes 0.1 10^3/uL (0-0.05); Absolute Lymphocytes 1.5 10^3/uL (1.2-3.4); Absolute Monocytes 0.7 10^3/uL (0.1-0.6); Absolute Neutrophils 15.3 10^3/uL (1.4-6.5); Hematocrit 41.7 % (37.0-47.0); Hemoglobin 13.5 g/dL (12.0-16.0); Mean Corp Hgb Conc. 32.4 g/dL (33.0-37.0); Mean Corpuscular Hgb 29.2 pg (27.0-31.0); Mean Corpuscular Volume 90.1 fL (81.0-99.0); Mean Platelet Volume 10.8 fL (7.4-10.4); Nucleated Red Blood Cells % 0 %; Platelet Count 357 10^3/uL (130-400); Red Blood Cell Count 4.63 10^6/uL (4.20-5.40); Red Cell Dist. Width 13.7 % (11.5-14.5); White Blood Cell Count 17.6 10^3/uL (4.8-10.8)
[2024-08-26 06:53] LABS: Blood Urea Nitrogen 22 mg/dl (7-17); Calcium 9.7 mg/dl (8.4-10.2); Carbon Dioxide 24 mmol/L (22-30); Chloride 103 mmol/L (98-107); Estimated Creatinine Clearance 97 ml/min; Glucose 121 mg/dl (70-99); Potassium 5.2 mmol/L (3.5-5.1); Sodium 140 mmol/L (135-145); eGFR > 60.00
[2024-08-26 07:00] VITALS: BP 129/82
[2024-08-26] MEDS: TORADOL 15 MG IV ×2 (07:03→14:01)
[2024-08-26] MEDS: PROTONIX 40 MG PO (07:06)
[2024-08-26] MEDS: TOPAMAX 25 MG PO (07:06)
--- NOTE | 2024-08-26 13:19 | W.PN.NEURO.1 ---
Today's Communication / Plan
-
.
Subjective/Objective
Subjective Data
Date of Service: August 26, 2024
Neurology follow-up note.
24h events: NSVT.
Ms. Thomas's pain level was 9/10 at 7 AM. It went down to 6/10 at 8 AM after 4 mg of Dexamethasone and 15 mg of Toradol and remained at 6/10 at 11:29 AM.
EKG(08/26/2024) QTc 386 ms
No reports of conjunctival injection and/or lacrimation, nasal congestion and/or rhinorrhea, forehead or facial sweating.
PMH: migraine wo aura, BMI 32, h/o toxic shock syndrome
PSH:reduction mammoplasty, tonsillectomy
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
FH: Multiple family members had cerebral aneurysm
All:Tetanus toxoid
ROS:Constitutional: Negative. Negative for chills, fever and unexpected weight change.
HENT: Negative for ear pain, hearing loss, tinnitus and trouble swallowing.
Eyes: Negative. Negative for photophobia, pain and visual disturbance.
Respiratory: Negative for cough, choking and shortness of breath.
Cardiovascular: Negative for chest pain, palpitations and leg swelling.
Gastrointestinal: Negative for abdominal pain and vomiting.
Endocrine: Negative. Negative for cold intolerance.
Genitourinary: Negative for dysuria, flank pain and urgency.
Musculoskeletal: Negative for back pain, gait problem, neck pain and neck stiffness.
Skin: Negative for rash.
Allergic/Immunologic: Negative. Negative for immunocompromised state.
Neurological: positive for headache
Psychiatric/Behavioral: Negative for behavioral problems, confusion and hallucinations.
General: Well developed. In no acute distress.
Cardio: Regular rate and rhythm without murmur. Extremities are without cyanosis or edema.
Neuro:
Mental Status: Alert, oriented to person, place, and date. Normal attention and recall. Good fund of knowledge. Follows complex requests across the midline. Comprehension, naming, and repetition intact. Immediate and delayed recall 3/3.
Cranial Nerves: . Pupils are equally round and reactive to light. EOMs full. Visual castellanos full to confrontation. No ptosis. No nystagmus. V1-V3 intact to light touch and pinprick bilaterally, symmetric. Face symmetric. Normal hearing AU.
The palate elevated well. SCMs and traps 5/5. Tongue midline. No dysarthria.
Motor: Normal bulk and tone. No pronator or arm drift. Strength 5/5 throughout. No clonus.
Coordination: No dysmetria or tremor.
Gait: deferred
Assessment and Plan:
I. Probably secondary headache.
II. R anterior temporal fossa 1.3 x 1.4 x 1.1 cm dural-based lesion with mild mass effect
III. Abnormal urine levels of substances chiefly nonmedicinal as to source.
-IV Toradol 30 mg, Compazine 10 mg and Benadryl 25 mg Q8h PRN for moderate to severe headache.
-Continue dexamethasone 4 mg every 6 hour IV with PPI prophylaxis
-Increase Topamax to 50 mg twice daily with monitoring of bicarb level
-Will consider CSF studies if no clinical improvement and based on medical records data
-Please obtain medical records from [facility]
I personally reviewed all radiology and labs along with past medical records pertinent to current medical problems. Total time spent in patient care is 35 minutes.
Thank you for allowing us to participate in the care of this patient. We will continue to follow. Please do not hesitate to contact us with any questions or concerns
Objective Data
Vital Signs
Temp Pulse Resp BP Pulse Ox
36.6 C 75 18 129/82 99
08/26/24 07:00 08/26/24 07:00 08/26/24 07:00 08/26/24 07:00 08/26/24 07:30
Lab Results
08/26/24 05:48
08/26/24 05:48
Sodium 140 mmol/L (135-145) 08/26/24 05:48
Potassium 5.2 mmol/L (3.5-5.1) H 08/26/24 05:48
BUN 22 mg/dl (7-17) H 08/26/24 05:48
Glucose 121 mg/dl (70-99) H 08/26/24 05:48
Calcium 9.7 mg/dl (8.4-10.2) 08/26/24 05:48
Ur Buprenorphine Negative (Negative) 08/23/24 13:28
Patient Allergies
Tetanus Vaccines and Toxoid Allergy (Verified 08/22/24 22:15)
Unknown
Vital Signs and Labs
-
Vital Signs and Labs:
Vital Signs
Temp Pulse Resp BP Pulse Ox
36.6 C 75 18 129/82 99
08/26/24 07:00 08/26/24 07:00 08/26/24 07:00 08/26/24 07:00 08/26/24 07:30
Lab Results
08/26/24 05:48
08/26/24 05:48
Sodium 140 mmol/L (135-145) 08/26/24 05:48
Potassium 5.2 mmol/L (3.5-5.1) H 08/26/24 05:48
BUN 22 mg/dl (7-17) H 08/26/24 05:48
Glucose 121 mg/dl (70-99) H 08/26/24 05:48
Calcium 9.7 mg/dl (8.4-10.2) 08/26/24 05:48
Ur Buprenorphine Negative (Negative) 08/23/24 13:28
Medications
-
Medications:
Generic Name Dose Route Start Last Admin
Trade Name Freq PRN Reason Stop Dose Admin
Acetaminophen 1,000 mg 08/23/24 11:00 08/26/24 11:29
Acetaminophen 500 Mg Tablet PO 09/20/24 10:59 1,000 mg
Q8H ED Administration
Dexamethasone Sodium Phosphate 4 mg 08/24/24 14:00 08/26/24 07:05
Dexamethasone 4 Mg/Ml 1 Ml Vial IV 09/21/24 13:59 4 mg
Q6H ED Administration
Diclofenac Sodium 75 mg 08/25/24 13:36 08/25/24 18:31
Diclofenac 75 Mg Tablet PO 09/22/24 19:59 75 mg
BID PRN Administration
moderate headache
Diphenhydramine HCl 25 mg 08/23/24 12:08 08/25/24 21:11
Diphenhydramine 50 Mg/Ml 1 Ml Vial IV 09/20/24 12:07 25 mg
HSPRN PRN Administration
hedache
Hydralazine HCl 10 mg 08/23/24 03:36
Hydralazine 20 Mg/Ml Vial IV 09/20/24 03:35
Q6HPRN PRN
SBP > 180
Ketorolac Tromethamine 15 mg 08/23/24 03:36 08/26/24 07:03
Ketorolac 15 Mg/Ml Injection IV 08/28/24 03:35 15 mg
Q6HPRN PRN Administration
Moderate Pain
Metoclopramide HCl 10 mg 08/23/24 12:08 08/24/24 00:12
Metoclopramide 10 Mg/2 Ml Vial IV 09/20/24 12:07 10 mg
Q8HPRN PRN Administration
headache
Pantoprazole Sodium 40 mg 08/24/24 13:00 08/26/24 07:06
Pantoprazole 40 Mg Delayed Release Tablet PO 09/21/24 12:59 40 mg
DAILY ED Administration
Sodium Chloride 0 flush 08/23/24 03:00 08/24/24 20:48
Sodium Chloride 0.9% (Flush) Syringe IV 09/20/24 02:59 1 flush
PER PROTOCOL ED Administration
Topiramate 50 mg 08/26/24 20:00
Topiramate 25 Mg Tablet PO 09/21/24 19:59
BID ED
Home Medications
-
Home Medications
No Meds [No Current Medications] 08/23/24
[2024-08-26] MEDS: COMPAZINE 10 MG IV (14:02)
[2024-08-26 15:00] VITALS: BP 115/61
--- NOTE | 2024-08-26 17:31 | W.PN.HOSP.TC ---
Today's Communication/Plan
-
Migraine 'cocktail' has been ordered by neuro
Assessment / Plan
Assessment / Plan
CTA h&n
No convincing acute intracranial process.
In the medial right temporal lobe there is a 1.5 x 1.3 cm focus of enhancement which may represent a venous frey/varix, less likely mass, aneurysm or hemorrhage. Otherwise no significant vascular occlusion, aneurysm or dissection. Recommend further
evaluation with contrast-enhanced MRI.
MRI brain
No acute intracranial abnormality noted.
There is a 1.3 x 1.4 x 1.1 cm homogeneously enhancing, dural-based lesion along the right anterior temporal fossa with associated mild mass effect on the adjacent temporal lobe which is favored to represent a meningioma.

Intractable Migraine still with symptoms
h/o status migrainosus
- PRN reglan ordered by neurology, wants to continue Decadron, but stop Dilaudid
As per neuro: IV Toradol 15 mg, Compazine 10 mg IV and Benadryl 25 mg Q8h PRN for moderate to severe headache. Reglan has been stopped
-Continue dexamethasone 4 mg every 6 hour IV with PPI prophylaxis
discussed with neuro, wants Toradol, Compazine and Benadryl to all be given together if has headache exacerbation
Right ant temporal fossa meningioma
- CTA Brain done this evening shows 1.5 x 1.3 cm abnormality in the R temporal region c/w venous frey / possible aneurysm (though less likely).
- MRI brain showing right ant temporal fossa meningioma
- Neurosx involved in care and clinically less likely to causing patient symptoms. No indication for sx
Pt on monitor and nursing noted area where was concerned for NSVT. Discussed with Dr. Dwyer today, who felt area on tele strip was artifact and that no cardiac eval or intervention was necessary. As such will cancel consult
complex situation
DVT Prophylaxis: SCDs
Code Status: Full
Anticipated Discharge: 24 - 48 hours
Subjective/Interval History
-
Date of Service: August 26, 2024
Still with headache
Objective Data
-
Labs:
Laboratory Results
08/26/24
05:48
WBC 17.6 H
Hgb 13.5
Hct 41.7
Plt Count 357
Sodium 140
Potassium 5.2 H
Chloride 103
Carbon Dioxide 24
BUN 22 H
Creatinine 0.9
Glucose 121 H
Calcium 9.7
Vital Signs:
Vital Signs
Temp Pulse Resp BP Pulse Ox
97.8 F 59 18 115/61 99
08/26/24 15:00 08/26/24 15:00 08/26/24 15:00 08/26/24 15:00 08/26/24 15:00
I&O
08/25/24 08/26/24 08/27/24
06:59 06:59 06:59
Intake Total 1440 / 1440 180 / 180
Balance 1440 / 1440 180 / 180
Review of Systems
-
History Source: Patient and Coordinated Provider
Constitutional: Denies Fever
EENT: Reports No Symptoms Reported
Cardiac: Reports Palpitations
Abdomen/GI: Reports No Symptoms
Neuro: Reports Headache
Physical Exam
-
General: Well Developed, Well Nourished and No Apparent Distress
HEENT: Normocephalic, Atraumatic and Moist Mucous Membranes
Respiratory: Clear to Auscultation; Negative Wheezes, Rales or Rhonchi
Cardiac: Regular Rhythm and S1/S2
GI: Soft, Nontender and Nondistended
Musculoskeletal: No Clubbing, No Cyanosis and No Edema
Neuro: Awake, Alert and Oriented
[2024-08-26 19:25] VITALS: BP 126/59
[2024-08-26] MEDS: TOPAMAX 50 MG PO (21:49)
[2024-08-26] MEDS: IMODIUM 2 MG PO (21:49)
[2024-08-26 23:35] VITALS: BP 118/51
[2024-08-27] MEDS: TYLENOL 1000 MG PO ×2 (02:20→09:55)
[2024-08-27] MEDS: DECADRON 4 MG IV ×3 (02:20→13:55)
[2024-08-27 03:00] VITALS: BP 114/67
[2024-08-27 07:45] VITALS: BP 119/74
[2024-08-27] MEDS: PROTONIX 40 MG PO (08:02)
[2024-08-27] MEDS: TOPAMAX 50 MG PO (08:02)
[2024-08-27 08:18] LABS: % Basophils 0.1 % (0-2); % Immature Granulocytes 0.7 % (0-0.5); % Lymphocytes 13.2 % (20.5-51.1); % Monocytes 3.4 % (1.7-9.3); % Neutrophils 82.6 % (42.2-75.2); Absolute Immature Granulocytes 0.1 10^3/uL (0-0.05); Absolute Lymphocytes 1.9 10^3/uL (1.2-3.4); Absolute Monocytes 0.5 10^3/uL (0.1-0.6); Absolute Neutrophils 11.6 10^3/uL (1.4-6.5); Hematocrit 43.9 % (37.0-47.0); Hemoglobin 13.6 g/dL (12.0-16.0); Mean Corpuscular Hgb 28.2 pg (27.0-31.0); Mean Corpuscular Volume 90.9 fL (81.0-99.0); Mean Platelet Volume 10.6 fL (7.4-10.4); Nucleated Red Blood Cells % 0 %; Platelet Count 366 10^3/uL (130-400); Red Blood Cell Count 4.83 10^6/uL (4.20-5.40); Red Cell Dist. Width 13.7 % (11.5-14.5)
[2024-08-27 08:59] LABS: Blood Urea Nitrogen 24 mg/dl (7-17); Calcium 9.9 mg/dl (8.4-10.2); Carbon Dioxide 24 mmol/L (22-30); Chloride 104 mmol/L (98-107); Estimated Creatinine Clearance 97 ml/min; Glucose 138 mg/dl (70-99); Potassium 4.8 mmol/L (3.5-5.1); Sodium 140 mmol/L (135-145); eGFR > 60.00
--- NOTE | 2024-08-27 09:04 | W.PN.NEURO.1 ---
Addendum entered and electronically signed by Ger Myrick MD 08/27/24 11:46:
Correction, change dexamethasone to prednisone 60 mg with downward titration by 10 mg daily until off
Original Note:
Today's Communication / Plan
-
IV Ketorolac 30 mg, Prochlorperazine 10 mg and Diphenhydramine 25 mg Q8h PRN for moderate to severe headache.
Continue dexamethasone 4 mg every 6 hour IV with PPI prophylaxis, decrease every week until off
Increased Topamax to 50 mg twice daily
Follow neurosurgery for meningioma monitoring
Neuro Assessment/Plan
Assessment
I. Probably secondary headache or intractable migraine
II. R anterior temporal fossa 1.3 x 1.4 x 1.1 cm dural-based lesion with mild mass effect
Plan
IV Ketorolac 30 mg, Prochlorperazine 10 mg and Diphenhydramine 25 mg Q8h PRN for moderate to severe headache.
Continue dexamethasone 4 mg every 6 hour IV with PPI prophylaxis, decrease every week until off
Increased Topamax to 50 mg twice daily
Follow neurosurgery for meningioma monitoring
Will follow as needed
Subjective/Objective
Subjective Data
Date of Service: August 27, 2024
Intensity 1/10, at 0 with overnight cocktail of medication
Objective Data
Vital Signs
Temp Pulse Resp BP Pulse Ox
36.8 C 68 20 119/74 98
08/27/24 07:45 08/27/24 07:45 08/27/24 07:45 08/27/24 07:45 08/27/24 07:45
Lab Results
08/27/24 07:35
08/27/24 07:35
Sodium 140 mmol/L (135-145) 08/27/24 07:35
Potassium 4.8 mmol/L (3.5-5.1) 08/27/24 07:35
BUN 24 mg/dl (7-17) H 08/27/24 07:35
Glucose 138 mg/dl (70-99) H 08/27/24 07:35
Calcium 9.9 mg/dl (8.4-10.2) 08/27/24 07:35
Ur Buprenorphine Negative (Negative) 08/23/24 13:28
Patient Allergies
Tetanus Vaccines and Toxoid Allergy (Verified 08/22/24 22:15)
Unknown
Review of Systems
-
History Source: Patient
All other systems: Reviewed and negative
EENT: Negative Blurry Vision
Musculoskeletal: Back Pain and Neck Pain
Neuro: Headache; Negative Dizzy
Physical Exam
-
General: No Apparent Distress and Appears Stated Age
Eyes: Round OU, [place] Conjunctivae and No Ptosis
HEENT: Anicteric and Moist Mucous Membranes
Neck: Full Range of Motion
Respiratory: No Dyspnea
Cardiac: No JVD
GI: Non-distended
Skin: Unremarkable
Extremities: No Clubbing, No Cyanosis and No Edema
Psych: Intact Judgement/Insight
Extended Neurological Exam
Mood & Affect: Mood Unremarkable and Affect Unremarkable
Attention Span & Concentration: Awake, Alert and Interactive
Memory: Unremarkable
Tremor: Hand Tremor Absent and Head Tremor Absent
Speech: Quality Unremarkable and Quantity Unremarkable
Cranial Nerve II: Left Eye: Pupillary Size Unremarkable and Visual Marinelli Grossly Intact
Cranial Nerve II: Right Eye: Pupillary Size Unremarkable and Visual Mairnelli Grossly Intact
Cranial Nerves III, IV, : Extraocular Movement: Grossly Intact
Cranial Nerve VII: Facial Symmetry: Normal Facial Symmetry
Cranial Nerve VIII: Hearing: Unremarkable Hearing to Normal Conversational Volume
Cranial Nerve XI: Shoulder Shrug: Unremarkable
Muscle Strength, Overall: Full in Upper Extremities
Muscle Bulk & Tone: Bulk Unremarkable and Tone Unremarkable
Pronator Drift: No Drift in Upper Extremities
Touch Sensation: Unremarkable
Coordination: Reaches for Objects without Difficulty
Data Reviewed
-
MRI Head: Report Reviewed
MRA Head: Report Reviewed
Labs: Report Reviewed
Reviewed with: Physician and Patient
Old Records: Summarized
Past History
Past History
ED Past Medical History: Other (Chronic migraines)
ED Past Surgical History: Other (Breast reduction)
Medications
-
Medications:
Generic Name Dose Route Start Last Admin
Trade Name Freq PRN Reason Stop Dose Admin
Acetaminophen 1,000 mg 08/23/24 11:00 08/27/24 02:20
Acetaminophen 500 Mg Tablet PO 09/20/24 10:59 1,000 mg
Q8H ED Administration
Dexamethasone Sodium Phosphate 4 mg 08/24/24 14:00 08/27/24 08:02
Dexamethasone 4 Mg/Ml 1 Ml Vial IV 09/21/24 13:59 4 mg
Q6H ED Administration
Diclofenac Sodium 75 mg 08/25/24 13:36 08/25/24 18:31
Diclofenac 75 Mg Tablet PO 09/22/24 19:59 75 mg
BID PRN Administration
moderate headache
Diphenhydramine HCl 25 mg 08/23/24 12:08 08/25/24 21:11
Diphenhydramine 50 Mg/Ml 1 Ml Vial IV 09/20/24 12:07 25 mg
HSPRN PRN Administration
hedache
Hydralazine HCl 10 mg 08/23/24 03:36
Hydralazine 20 Mg/Ml Vial IV 09/20/24 03:35
Q6HPRN PRN
SBP > 180
Ketorolac Tromethamine 15 mg 08/23/24 03:36 08/26/24 14:01
Ketorolac 15 Mg/Ml Injection IV 08/28/24 03:35 15 mg
Q6HPRN PRN Administration
Moderate Pain
Pantoprazole Sodium 40 mg 08/24/24 13:00 08/27/24 08:02
Pantoprazole 40 Mg Delayed Release Tablet PO 09/21/24 12:59 40 mg
DAILY ED Administration
Prochlorperazine Edisylate 10 mg 08/26/24 13:42 08/26/24 14:02
Prochlorperazine 10 Mg/2 Ml Vial IV 09/23/24 13:41 10 mg
Q6HPRN PRN Administration
headache and/or nausea
Sodium Chloride 0 flush 08/23/24 03:00 08/24/24 20:48
Sodium Chloride 0.9% (Flush) Syringe IV 09/20/24 02:59 1 flush
PER PROTOCOL ED Administration
Topiramate 50 mg 08/26/24 20:00 08/27/24 08:02
Topiramate 25 Mg Tablet PO 09/21/24 19:59 50 mg
BID ED Administration
[2024-08-27] MEDS: COMPAZINE 10 MG PO (09:55)
[2024-08-27] MEDS: TORADOL 15 MG IV (09:56)
[2024-08-27] MEDS: TYLENOL PO (12:17)
--- NOTE | 2024-08-27 14:35 | CM ---
Chart reviewed and patient ambulating in room, patient has switched to inpatient, patient made aware.
Plan; Home with family when stable.
[2024-08-27 15:21] VITALS: BP 119/63
--- NOTE | 2024-08-27 15:57 | W.PN.HOSP.TC ---
Today's Communication/Plan
-
dc to home
Assessment / Plan
Assessment / Plan
CTA h&n
No convincing acute intracranial process.
In the medial right temporal lobe there is a 1.5 x 1.3 cm focus of enhancement which may represent a venous frey/varix, less likely mass, aneurysm or hemorrhage. Otherwise no significant vascular occlusion, aneurysm or dissection. Recommend further
evaluation with contrast-enhanced MRI.
MRI brain
No acute intracranial abnormality noted.
There is a 1.3 x 1.4 x 1.1 cm homogeneously enhancing, dural-based lesion along the right anterior temporal fossa with associated mild mass effect on the adjacent temporal lobe which is favored to represent a meningioma.

Intractable Migraine markedly reduced
h/o status migrainosus
discussed plans with Dr. Myrick. Decadron will be changed to Prednisone with rapid taper
As per neuro: okay for dc, Topamax will be scheduled, other meds will be prn and Prednisone will be rapidly tapered
Right ant temporal fossa meningioma
- CTA Brain done this evening shows 1.5 x 1.3 cm abnormality in the R temporal region c/w venous frey / possible aneurysm (though less likely).
- MRI brain showing right ant temporal fossa meningioma
- Neurosx involved in care and clinically less likely to causing patient symptoms. No indication for sx
Pt on monitor and nursing noted area where was concerned for NSVT. Discussed with Dr. Dwyer, who felt area on tele strip was artifact and that no cardiac eval or intervention was necessary. As such will cancel consult
dc to home
DVT Prophylaxis: SCDs
Code Status: Full
Anticipated Discharge: Today
Subjective/Interval History
-
Date of Service: August 27, 2024
headache much reduced
Objective Data
-
Labs:
Laboratory Results
08/27/24
07:35
WBC 14.0 H
Hgb 13.6
Hct 43.9
Plt Count 366
Sodium 140
Potassium 4.8
Chloride 104
Carbon Dioxide 24
BUN 24 H
Creatinine 0.9
Glucose 138 H
Calcium 9.9
Vital Signs:
Vital Signs
Temp Pulse Resp BP Pulse Ox
98.6 F 66 17 119/63 99
08/27/24 15:21 08/27/24 15:21 08/27/24 15:21 08/27/24 15:21 08/27/24 15:21
I&O
08/26/24 08/27/24 08/28/24
06:59 06:59 06:59
Intake Total 180 / 180 240 / 240
Balance 180 / 180 240 / 240
Review of Systems
-
History Source: Patient and Coordinated Provider
Constitutional: Denies Fever
EENT: Reports No Symptoms Reported
Cardiac: Reports Palpitations
Abdomen/GI: Reports No Symptoms
Neuro: Reports Headache (essentially resolved)
Physical Exam
-
General: Well Developed, Well Nourished and No Apparent Distress
HEENT: Normocephalic, Atraumatic and Moist Mucous Membranes
Respiratory: Clear to Auscultation; Negative Wheezes, Rales or Rhonchi
Cardiac: Regular Rhythm and S1/S2
GI: Soft, Nontender and Nondistended
Musculoskeletal: No Clubbing, No Cyanosis and No Edema
Neuro: Awake, Alert and Oriented
--- NOTE | 2024-08-27 17:44 | W.DS.TRANS ---
DC Summary - Nursing Information Systems Coordinator
-
Discharge Instructions:
Discharge Diagnosis/Procedures Migraine
Diet Regular
Activity As tolerated
Driving Restrictions should not drive if headache recurs
Bathing Restrictions None
Instructions:
Stand-Alone Forms:
Changes to Home Medications: Yes
Discharge Medications:
DC Medications w/original date entered in [facility]
diphenhydramine HCl 25 mg capsule (Benadryl) 25 mg PO TID PRN headache #20 caps 08/27/24
omeprazole 20 mg capsule,delayed release 20 mg PO DAILY #30 caps 08/27/24
prednisone 10 mg tablet 10 mg PO DIRECTED #21 tabs 08/27/24
prochlorperazine maleate 10 mg tablet (Compazine) 10 mg PO Q8H PRN nausea/migraine #14 tabs 08/27/24
topiramate 25 mg tablet 50 mg (2 x 25 mg) PO BID #120 tabs 08/27/24
Home Medication Changes
except for Omeprazole, all above meds are new
Pending Results: No
== END 2024-08-27 16:49 | disposition home or self-care (01) | DRG 103 ==
LOC: 4 WEST ACU 15:24
PROVIDERS: ADMITTING PHYSICIAN Hospitalist; ATTENDING PHYSICIAN Internal Medicine; CONSULT PHYSICIAN Psychiatry & Neurology Neurology; EMERGENCY PHYSICIAN Emergency Medicine; FAMILY PHYSICIAN Family Medicine; OTHER PHYSICIAN Neurological Surgery
DX: G43.011 Migraine without aura, intractable, with status migrainosus (principal); I47.20 Ventricular tachycardia, unspecified; D32.0 Benign neoplasm of cerebral meninges; M54.2 Cervicalgia; Z88.7 Allergy status to serum and vaccine
CPT/HCPCS: 70496; 70498; 70546; 70553; 80048; 80053; 80306; 80307; 83735; 84484; 84703; 85025; 85027; 85379; 85652; 86141; 86618; 93005; 96374; 99285; Q9967